=== PATIENT | male | born 1980 ===

== ENCOUNTER 2019-02-27 19:51 | Emergency (ER) | payer OTHER ==
[2019-02-27 20:12] VITALS: BP 129/85; PULSE 72; RESP 20; TEMP 98.6; O2SAT 99
[2019-02-27] MEDS ORDERED: Lidocaine 2% MPF (5 ml) Inj ONE (21:25)
--- NOTE | 2019-02-27 21:37 | C.PDOC ---
History Of Present Illness 38-year-old male presents to the emergency department status post cutting his left thumb while he was cutting food tonight. Patient reports wound to left thumb. Patient states that he is UTD with his tetanus vaccination. Chief Complaint (Nursing): Abnormal Skin Integrity History Per: Patient History/Exam Limitations: no limitations Onset/Duration Of Symptoms: Hrs Current Symptoms Are (Timing): Still Present Location Of Injury: Left: Hand (thumb) Quality Of Symptoms: Other (cut wound) Past Medical History Reviewed: Historical Data, Nursing Documentation, Vital Signs Vital Signs: Last Vital Signs Temp 98.6 F 02/27/19 20:00 Pulse 72 02/27/19 20:00 Resp 20 02/27/19 20:00 BP 129/85 02/27/19 20:00 Pulse Ox 99 02/27/19 20:00 - Medical History PMH: No Chronic Diseases Surgical History: No Surg Hx Family History: States: No Known Family Hx - Social History Hx Alcohol Use: Yes Hx Substance Use: No - Immunization History Hx Tetanus Toxoid Vaccination: Yes (6 yrs ago) Review Of Systems Constitutional: Negative for: Fever, Chills Musculoskeletal: Positive for: Hand Pain (cut wound left thumb) Skin: Negative for: Rash Neurological: Negative for: Weakness, Numbness Physical Exam - Physical Exam Appears: Well, Non-toxic, No Acute Distress Skin: Warm, Dry, Other (2cm laceration to palmar aspect of left thumb) Extremity: Normal ROM (full ROM of left thumb) Extremity: Bilateral: Normal Color And Temperature, Normal ROM (nml flexion and extention to all fingers) Neurological/Psych: Oriented x3, Normal Speech, Normal Cognition, Normal Motor, Normal Sensation ED Course And Treatment O2 Sat by Pulse Oximetry: 99 (RA) Pulse Ox Interpretation: Normal Laceration - Laceration Repair Left Thumb Wound Length (In cm): 2cm Description Of Wound: Linear Wound Cleansed With: Betadine, Sterile Saline Wound Closure: Suture (7) Suture Technique And Material Used: Interrupted, Prolene (5-0) Wound Complexity: Simple Disposition Counseled Patient/Family Regarding: Diagnosis, Need For Followup - Disposition Disposition: HOME/ ROUTINE Disposition Time: 21:34 Condition: STABLE Additional Instructions: Retorno para la eliminacin de suturas en 10-12 banks. Regrese antes si nota signos de infeccin. Instructions: Laceration Repair With Stitches (DC) Forms: Gen Discharge Inst Tunisian, [facility] (Tunisian) Print Language: LAO - Clinical Impression Clinical Impression: Laceration of left thumb without complication - PA / VAC PRESS OPERATOR / Resident Statement MD/DO has reviewed & agrees with the documentation as recorded. - Scribe Statement The provider has reviewed the documentation as recorded by the Scribe (Juan Kelly) All medical record entries made by the Scribe were at my direction and personally dictated by me. I have reviewed the chart and agree that the record accurately reflects my personal performance of the history, physical exam, medical decision making, and the department course for this patient. I have also personally directed, reviewed, and agree with the discharge instructions and disposition.
== END 2019-02-27 21:59 | disposition home or self-care (01) ==
LOC: C.ER 19:51
DX: S61.012A Laceration without foreign body of left thumb without damage to nail, initial encounter (principal); W26.0XXA Contact with knife, initial encounter; Y93.G1 Activity, food preparation and clean up

== ENCOUNTER 2019-03-09 16:07 | Emergency (ER) | payer OTHER ==
[2019-03-09 16:11] VITALS: BP 137/81; PULSE 75; RESP 18; TEMP 98.2; O2SAT 97
[2019-03-09] MEDS ORDERED: Tdap Vaccine 0.5 ml Vial (10-64 yrs) IM ONE ×2 (16:24→16:31)
--- NOTE | 2019-03-09 16:26 | C.PDOC ---
History Of Present Illness 39 y/o male presents to the ER for suture removal from left thumb. Patient states that he cut his hand with knife and he sustained a laceration 11 days ago. At the time, he had laceration repair in [facility]. Patient denies having drainage, fever, and chills. Time Seen by Provider: 03/09/19 16:13 Chief Complaint (Nursing): Suture/Staple Removal History Per: Patient History/Exam Limitations: no limitations Past Medical History Reviewed: Historical Data, Nursing Documentation, Vital Signs Vital Signs: Last Vital Signs Temp 98.2 F 03/09/19 16:08 Pulse 75 03/09/19 16:08 Resp 18 03/09/19 16:08 BP 137/81 03/09/19 16:08 Pulse Ox 97 03/09/19 16:08 - Medical History PMH: No Chronic Diseases Other Surgeries: Hx of surgeries Family History: States: No Known Family Hx - Social History Hx Alcohol Use: Yes Hx Substance Use: No - Immunization History Hx Tetanus Toxoid Vaccination: Yes (6 yrs ago) Review Of Systems Except As Marked, All Systems Reviewed And Found Negative. Constitutional: Negative for: Fever, Chills Physical Exam - Physical Exam Appears: Non-toxic, No Acute Distress Skin: Normal Color, Warm, Dry, Other (dry well healing laceration to left thumb with sutures intact, no drainage, no redness) Head: Atraumatic, Normacephalic Eye(s): bilateral: Normal Inspection Nose: Normal Oral Mucosa: Moist Neck: Supple Chest: Symmetrical Neurological/Psych: Oriented x3, Normal Speech ED Course And Treatment O2 Sat by Pulse Oximetry: 97 (RA) Pulse Ox Interpretation: Normal Medical Decision Making Medical Decision Making: Plan: --Tetanus Vaccination Updates: Sutures have been removed. Patient tolerated well. Patient has been discharged home. Disposition - Disposition Disposition: HOME/ ROUTINE Disposition Time: 16:26 Condition: STABLE Instructions: Wound Care (DC) Forms: Gen Discharge Inst Kosovan, [facility] (Kosovan) - Clinical Impression Clinical Impression: Removal of suture - Scribe Statement The provider has reviewed the documentation as recorded by the Rosendaibcasie Escoto Provider Attestation: All medical record entries made by the Rosendaibe were at my direction and personally dictated by me. I have reviewed the chart and agree that the record accurately reflects my personal performance of the history, physical exam, medical decision making, and the department course for this patient. I have also personally directed, reviewed, and agree with the discharge instructions and disposition.
== END 2019-03-09 16:33 | disposition home or self-care (01) ==
LOC: C.ER 16:07
DX: Z48.02 Encounter for removal of sutures (principal)